=== PATIENT | female | born 1950 | race Caucasian/White ===

== ENCOUNTER 2018-02-24 00:02 | Inpatient (IN) | payer OTHER ==
[~2018-02-24] VITALS: Ht 160 cm; Wt 52.0 kg
[~2018-02-24 00:02] MED LIST: ALBU90OI INH; ALBU90OI6 INH; ALBU90OI61 INH; ALPR.25 PO; ASPI81CH PO; ATEN25 PO; AZIT250 PO; AZIT500 PO; B-121000 MC2 PO; BUDE6HFA INH; BUPR150ER PO; BUSP10 PO; CEPH500 PO; CLOT10 SUSW; DELTASONE20 MG PO; DILT30; FLUO10 PO; FLUO20 PO; FLUSAL115; Flovent 44 mc10.6 GM INH; GUAIFENESIN ER600 MG PO; IBUP800 PO; LEVFLO500 PO; LISI5 PO; LORA1 PO; METPRE4DP PO; Nitroglycerin0.4 MG SL; PANT40 PO; PRED10 PO; PRED20 PO; TIOT18 IH; TOBR.3OPSO OP; Ventolin Soln3 ML INH; Zithromax250 MG PO
[2018-02-24 00:22] LABS: PCO2 Arterial 52.3 mmHg (35-45); PO2 Arterial 123 mmHg (80-100)
[2018-02-24 00:29] LABS: BASOPHILS ABSOLUTE AUTO 0.04 K/mm3 (0.00-0.23); BASOPHILS PERCENT AUTO 0 % (0-2); EOSINOPHILS PERCENT AUTO 0 % (0-6); Hematocrit 41.2 % (33.0-51.0); Hemoglobin 13.4 g/dL (11.5-16.0); IMMATURE GRAN ABSOLUTE AUTO 0.14 K/mm3 (0.00-0.10); IMMATURE GRAN PERCENT AUTO 1 % (0-1); LYMPHOCYTES ABSOLUTE AUTO 0.73 K/mm3 (0.84-5.20); LYMPHOCYTES PERCENT AUTO 3 % (21-46); MONOCYTES ABSOLUTE AUTO 1.34 K/mm3 (0.16-1.47); MONOCYTES PERCENT AUTO 6 % (4-13); Mean Corpuscular HGB 29.9 pg (26.0-34.0); Mean Corpuscular HGB Conc 32.5 g/dL (31.5-36.5); Mean Corpuscular Volume 92 fL (80-100); Mean Platelet Volume 8.5 fL (9.1-12.4); NEUTROPHILS ABSOLUTE AUTO 21.46 K/mm3 (1.96-9.15); NEUTROPHILS PERCENT AUTO 90 % (41-73); Platelet Count 358 K/mm3 (150-400); RDW Coefficient Variation 13.8 % (11.7-14.2); RDW Standard Deviation 47.3 fL (35.1-46.3); Red Blood Cell Count 4.48 M/mm3 (3.80-5.20); White Blood Cell Count 23.71 K/mm3 (4.00-11.30)
[2018-02-24 00:57] LABS: Alanine Aminotransfer (ALT/SGP 30 U/L (12-78); Albumin, Blood 3.4 g/dL (3.4-5.0); Albumin/Globulin Ratio 0.9 (0.8-1.8); Alk Phos 81 U/L (50-136); Anion Gap 6 mmol/L (6-16); Aspartate Aminotrans (AST/SGOT 31 U/L (12-37); Bilirubin, Total 0.3 mg/dL (0.1-1.0); Blood Urea Nitrogen 15 mg/dL (8-24); Bun/Creatinine Ratio 19.7 (12.0-20.0); CO2, Blood 25 mmol/L (21-32); Calcium, Blood 8.5 mg/dL (8.5-10.1); Chloride, Blood 104 mmol/L (98-108); Creatinine, Blood 0.76 mg/dL (0.40-1.00); Globulin, Blood 3.8 g/dL (2.2-4.0); Glomerular Filtration Rate >60 (60-); Glucose, Blood 131 mg/dL (70-99); Potassium, Blood 4.6 mmol/L (3.5-5.5); Sodium, Blood 135 mmol/L (136-145); Total Protein, Blood 7.2 g/dL (6.4-8.2); Troponin I <0.015 ng/mL (0.000-0.040)
[2018-02-24 07:54] LABS: Anion Gap 8 mmol/L (6-16); Blood Urea Nitrogen 13 mg/dL (8-24); Bun/Creatinine Ratio 18.2 (12.0-20.0); CO2, Blood 25 mmol/L (21-32); Calcium, Blood 8.8 mg/dL (8.5-10.1); Chloride, Blood 105 mmol/L (98-108); Creatinine, Blood 0.71 mg/dL (0.40-1.00); Glomerular Filtration Rate >60 (60-); Glucose, Blood 143 mg/dL (70-99); Potassium, Blood 4.4 mmol/L (3.5-5.5); Sodium, Blood 138 mmol/L (136-145)
[2018-02-24 08:06] LABS: PCO2 Arterial 51.1 mmHg (35-45); PO2 Arterial 58.7 mmHg (80-100); pH Blood Arterial 7.32 (7.35-7.45)
[2018-02-25 04:12] LABS: BASOPHILS ABSOLUTE AUTO 0.02 K/mm3 (0.00-0.23); BASOPHILS PERCENT AUTO 0 % (0-2); EOSINOPHILS PERCENT AUTO 0 % (0-6); Hematocrit 43.5 % (33.0-51.0); Hemoglobin 14.2 g/dL (11.5-16.0); IMMATURE GRAN ABSOLUTE AUTO 0.14 K/mm3 (0.00-0.10); IMMATURE GRAN PERCENT AUTO 1 % (0-1); LYMPHOCYTES ABSOLUTE AUTO 0.35 K/mm3 (0.84-5.20); LYMPHOCYTES PERCENT AUTO 2 % (21-46); MONOCYTES ABSOLUTE AUTO 0.33 K/mm3 (0.16-1.47); MONOCYTES PERCENT AUTO 2 % (4-13); Mean Corpuscular HGB 29.9 pg (26.0-34.0); Mean Corpuscular HGB Conc 32.6 g/dL (31.5-36.5); Mean Corpuscular Volume 92 fL (80-100); Mean Platelet Volume 8.8 fL (9.1-12.4); NEUTROPHILS ABSOLUTE AUTO 17.42 K/mm3 (1.96-9.15); NEUTROPHILS PERCENT AUTO 95 % (41-73); Platelet Count 371 K/mm3 (150-400); RDW Coefficient Variation 13.8 % (11.7-14.2); Red Blood Cell Count 4.75 M/mm3 (3.80-5.20); White Blood Cell Count 18.26 K/mm3 (4.00-11.30)
[2018-02-25 04:32] LABS: Anion Gap 8 mmol/L (6-16); Blood Urea Nitrogen 24 mg/dL (8-24); Bun/Creatinine Ratio 28.5 (12.0-20.0); CO2, Blood 32 mmol/L (21-32); Calcium, Blood 9.2 mg/dL (8.5-10.1); Chloride, Blood 98 mmol/L (98-108); Creatinine, Blood 0.84 mg/dL (0.40-1.00); Glomerular Filtration Rate >60 (60-); Glucose, Blood 140 mg/dL (70-99); Potassium, Blood 4.4 mmol/L (3.5-5.5); Sodium, Blood 138 mmol/L (136-145)
[2018-02-27 04:06] LABS: Hemoglobin 15.6 g/dL (11.5-16.0); Mean Corpuscular HGB 29.6 pg (26.0-34.0); Mean Corpuscular HGB Conc 32.5 g/dL (31.5-36.5); Mean Corpuscular Volume 91 fL (80-100); Mean Platelet Volume 8.4 fL (9.1-12.4); Platelet Count 403 K/mm3 (150-400); RDW Coefficient Variation 13.5 % (11.7-14.2); RDW Standard Deviation 45.6 fL (35.1-46.3); Red Blood Cell Count 5.27 M/mm3 (3.80-5.20); White Blood Cell Count 14.99 K/mm3 (4.00-11.30)
[2018-02-27 04:31] LABS: Anion Gap 8 mmol/L (6-16); Blood Urea Nitrogen 40 mg/dL (8-24); Bun/Creatinine Ratio 44.3 (12.0-20.0); CO2, Blood 32 mmol/L (21-32); Calcium, Blood 9.1 mg/dL (8.5-10.1); Chloride, Blood 94 mmol/L (98-108); Glomerular Filtration Rate >60 (60-); Glucose, Blood 155 mg/dL (70-99); Potassium, Blood 4.9 mmol/L (3.5-5.5); Sodium, Blood 134 mmol/L (136-145)
[2018-03-02 14:57] LABS: Hematocrit 45.6 % (33.0-51.0); Hemoglobin 14.8 g/dL (11.5-16.0); Mean Corpuscular HGB 29.6 pg (26.0-34.0); Mean Corpuscular HGB Conc 32.5 g/dL (31.5-36.5); Mean Corpuscular Volume 91 fL (80-100); Mean Platelet Volume 9.1 fL (9.1-12.4); Platelet Count 319 K/mm3 (150-400); RDW Coefficient Variation 13.4 % (11.7-14.2); RDW Standard Deviation 45.2 fL (35.1-46.3); White Blood Cell Count 17.59 K/mm3 (4.00-11.30)
[2018-03-03 05:40] LABS: Anion Gap 5 mmol/L (6-16); Blood Urea Nitrogen 23 mg/dL (8-24); Bun/Creatinine Ratio 34.7 (12.0-20.0); CO2, Blood 33 mmol/L (21-32); Calcium, Blood 8.5 mg/dL (8.5-10.1); Chloride, Blood 96 mmol/L (98-108); Creatinine, Blood 0.66 mg/dL (0.40-1.00); Glomerular Filtration Rate >60 (60-); Glucose, Blood 107 mg/dL (70-99); Potassium, Blood 4.7 mmol/L (3.5-5.5); Sodium, Blood 134 mmol/L (136-145)
[2018-03-03] MEDS ORDERED: BUDE.5 NEB (11:34)
[2018-03-03] MEDS ORDERED: GUAI600T33 PO (11:34)
[2018-03-03] MEDS ORDERED: FURO40 PO (11:39)
[2018-03-03] MEDS ORDERED: PRED10 PO (11:39)
[2018-03-03] MEDS ORDERED: ALBU3IS INH (11:40)
[2018-03-03] MEDS ORDERED: POTCHL10ER PO (11:40)
[2018-03-03] MEDS ORDERED: NYST100000 MT (11:40)
[2018-03-03] MEDS ORDERED: PANT40 PO (11:41)
[2018-03-04] MEDS ORDERED: LISI5 PO (09:37)
[2018-03-04] MEDS ORDERED: PRED20 (09:39)
== END 2018-03-04 16:39 | disposition home or self-care (01) | DRG 189 ==
LOC: ER 00:02 → PCU 00:03 → SURS 00:03 → PCU 03:15 → MEDS 03-02 17:18 → ENPENDDIS 03-04 09:52 → MEDS 03-04 16:39
PROVIDERS: Emergency Medicine; Hospitalist; Internal Medicine
DX: J96.01 Acute respiratory failure with hypoxia (principal); I50.31 Acute diastolic (congestive) heart failure; J44.1 Chronic obstructive pulmonary disease with (acute) exacerbation; J96.02 Acute respiratory failure with hypercapnia; I11.0 Hypertensive heart disease with heart failure; F17.210 Nicotine dependence, cigarettes, uncomplicated; Z66 Do not resuscitate; F41.9 Anxiety disorder, unspecified; F43.29 Adjustment disorder with other symptoms; D72.829 Elevated white blood cell count, unspecified; T38.0X5A Adverse effect of glucocorticoids and synthetic analogues, initial encounter
CPT/HCPCS: 36415; 36600; 71046; 80048; 80053; 82803; 83880; 84484; 85025; 85027; 93005; 93010; 93306; 94640; 94644; 94760; 94761; 96374; 97116; 97161; 97530; 99285; G0378; G8978; G8979; J1650; J1940; J2060; J2920; J2930

== ENCOUNTER 2019-03-07 11:00 | Emergency (ER) | payer OTHER ==
[~2019-03-07] VITALS: Ht 160 cm; Wt 58.5 kg
[~2019-03-07 11:00] MED LIST changes: +ALBU3IS INH; +BUDE.5 NEB; +FURO40 PO; +GUAI600T33 PO; +NYST100000 MT; +POTCHL10ER PO; +PRED20; +Prednisone20 MG PO; +Prozac40 MG PO
[2019-03-07 11:37] LABS: BASOPHILS ABSOLUTE AUTO 0.03 K/mm3 (0.00-0.23); BASOPHILS PERCENT AUTO 0 % (0-2); EOSINOPHILS ABSOLUTE AUTO 0.04 K/mm3 (0.00-0.68); EOSINOPHILS PERCENT AUTO 0 % (0-6); Hematocrit 39.3 % (33.0-51.0); Hemoglobin 12.4 g/dL (11.5-16.0); IMMATURE GRAN ABSOLUTE AUTO 0.02 K/mm3 (0.00-0.10); IMMATURE GRAN PERCENT AUTO 0 % (0-1); LYMPHOCYTES ABSOLUTE AUTO 1.35 K/mm3 (0.84-5.20); LYMPHOCYTES PERCENT AUTO 14 % (21-46); MONOCYTES ABSOLUTE AUTO 1.59 K/mm3 (0.16-1.47); MONOCYTES PERCENT AUTO 17 % (4-13); Mean Corpuscular HGB 29.5 pg (26.0-34.0); Mean Corpuscular HGB Conc 31.6 g/dL (31.5-36.5); Mean Corpuscular Volume 93 fL (80-100); Mean Platelet Volume 8.8 fL (9.1-12.4); NEUTROPHILS ABSOLUTE AUTO 6.32 K/mm3 (1.96-9.15); NEUTROPHILS PERCENT AUTO 68 % (41-73); Platelet Count 314 K/mm3 (150-400); RDW Coefficient Variation 14.4 % (11.7-14.2); RDW Standard Deviation 49.2 fL (35.1-46.3); Red Blood Cell Count 4.21 M/mm3 (3.80-5.20); White Blood Cell Count 9.35 K/mm3 (4.00-11.30)
[2019-03-07 11:50] LABS: Alanine Aminotransfer (ALT/SGP 19 U/L (12-78); Albumin, Blood 3.7 g/dL (3.4-5.0); Albumin/Globulin Ratio 0.9 (0.8-1.8); Alk Phos 108 U/L (50-136); Anion Gap 7 mmol/L (6-16); Aspartate Aminotrans (AST/SGOT 17 U/L (12-37); Bilirubin, Total 1.2 mg/dL (0.1-1.0); Blood Urea Nitrogen 16 mg/dL (8-24); Bun/Creatinine Ratio 19.4 (12.0-20.0); CO2, Blood 25 mmol/L (21-32); Chloride, Blood 103 mmol/L (98-108); Creatinine, Blood 0.83 mg/dL (0.40-1.00); Glomerular Filtration Rate >60 (60-); Glucose, Blood 95 mg/dL (70-99); Potassium, Blood 3.9 mmol/L (3.5-5.5); Sodium, Blood 135 mmol/L (136-145); Total Protein, Blood 7.7 g/dL (6.4-8.2); Troponin I <0.015 ng/mL (0.000-0.040)
[2019-03-07] MEDS ORDERED: AZIT500 PO (15:21)
[2019-03-07] MEDS ORDERED: (None)20 M1 PO (15:21)
== END 2019-03-07 15:30 | disposition home or self-care (01) ==
LOC: ER 11:00
PROVIDERS: Physician Assistant
DX: J44.1 Chronic obstructive pulmonary disease with (acute) exacerbation (principal); R06.03 Acute respiratory distress; F41.9 Anxiety disorder, unspecified; I10 Essential (primary) hypertension; Z86.19 Personal history of other infectious and parasitic diseases; Z79.52 Long term (current) use of systemic steroids; Z79.899 Other long term (current) drug therapy; Z87.891 Personal history of nicotine dependence
CPT/HCPCS: 36415; 71046; 80053; 84484; 85025; 93005; 93010; 94640; 96374; 99284-25; J2930

== ENCOUNTER 2019-03-10 05:08 | Inpatient (IN) | payer OTHER ==
[~2019-03-10] VITALS: Ht 160 cm; Wt 56.9 kg
[~2019-03-10 05:08] MED LIST changes: +(None)20 M1 PO
[2019-03-10 05:29] LABS: BASOPHILS ABSOLUTE AUTO 0.02 K/mm3 (0.00-0.23); BASOPHILS PERCENT AUTO 0 % (0-2); EOSINOPHILS PERCENT AUTO 0 % (0-6); Hematocrit 37.5 % (33.0-51.0); Hemoglobin 11.8 g/dL (11.5-16.0); IMMATURE GRAN ABSOLUTE AUTO 0.18 K/mm3 (0.00-0.10); IMMATURE GRAN PERCENT AUTO 2 % (0-1); LYMPHOCYTES ABSOLUTE AUTO 0.89 K/mm3 (0.84-5.20); LYMPHOCYTES PERCENT AUTO 9 % (21-46); MONOCYTES ABSOLUTE AUTO 1.15 K/mm3 (0.16-1.47); MONOCYTES PERCENT AUTO 12 % (4-13); Mean Corpuscular HGB 29.6 pg (26.0-34.0); Mean Corpuscular HGB Conc 31.5 g/dL (31.5-36.5); Mean Corpuscular Volume 94 fL (80-100); Mean Platelet Volume 8.9 fL (9.1-12.4); NEUTROPHILS ABSOLUTE AUTO 7.58 K/mm3 (1.96-9.15); NEUTROPHILS PERCENT AUTO 77 % (41-73); Platelet Count 411 K/mm3 (150-400); RDW Standard Deviation 48.4 fL (35.1-46.3); Red Blood Cell Count 3.98 M/mm3 (3.80-5.20); White Blood Cell Count 9.82 K/mm3 (4.00-11.30)
[2019-03-10 05:54] LABS: Alanine Aminotransfer (ALT/SGP 32 U/L (12-78); Albumin, Blood 3.3 g/dL (3.4-5.0); Albumin/Globulin Ratio 0.8 (0.8-1.8); Alk Phos 95 U/L (50-136); Anion Gap 8 mmol/L (6-16); Aspartate Aminotrans (AST/SGOT 24 U/L (12-37); Bilirubin, Total 0.3 mg/dL (0.1-1.0); Blood Urea Nitrogen 18 mg/dL (8-24); Bun/Creatinine Ratio 20.2 (12.0-20.0); CO2, Blood 24 mmol/L (21-32); Calcium, Blood 8.9 mg/dL (8.5-10.1); Chloride, Blood 108 mmol/L (98-108); Creatinine, Blood 0.89 mg/dL (0.40-1.00); Globulin, Blood 3.9 g/dL (2.2-4.0); Glomerular Filtration Rate >60 (60-); Glucose, Blood 182 mg/dL (70-99); Potassium, Blood 4.3 mmol/L (3.5-5.5); Sodium, Blood 140 mmol/L (136-145); Total Protein, Blood 7.2 g/dL (6.4-8.2); Troponin I <0.015 ng/mL (0.000-0.040)
[2019-03-10 06:08] LABS: Base Excess Venous -2.4 mmol/L; Bicarbonate Venous 22.7 mmol/L (24.0-30.0); PCO2 Venous 35.6 mmHg (38-42); PO2 Venous 195 mmHg (38-42); pH Blood Venous 7.41 (7.34-7.37)
[2019-03-10] MEDS ORDERED: ASPI81CH PO (06:47)
--- NOTE | 2019-03-10 07:22 | NUR ---
ASSUMED CARE OF PT @3774 FROM JUANA EAGLE RN. PT TO ROOM ON STRWETCHER, BIPAP IN PLACE. PT SATS >95%. PLACED ON TELE AND O2 SAT MONITOR. REPORT GIVEN TO ELSI READ AND STUDENT RN.
--- NOTE | 2019-03-10 07:29 | NUR ---
ASSUMED CARE OF PT @0645 FROM JUANA FARR RN FROM ED. PT TO ROOM ON STRETCHER, BIPAP 12/8, 10, FIO2 30%. O2 SATS >95%. PT ALERT AND ORIENTED. PT PLACESD ON TELE AND SAT MONITOR. ORIENTED TO ROOM. CALL LIGHT WITHIN REACH OF PT, BED IN LOWEST POSITION. REPORT GIVEN TO EDWIN KUO RN.
[2019-03-10 10:17] LABS: Adenovirus Not Detected (NOT DETECT); Bordetella pertussis Not Detected (NOT DETECT); Chlamydophila pneumoniae Not Detected (NOT DETECT); Coronavirus 229E Not Detected (NOT DETECT); Coronavirus HKU1 Not Detected (NOT DETECT); Coronavirus NL63 Not Detected (NOT DETECT); Coronavirus OC43 Not Detected (NOT DETECT); Human Metapneumovirus Not Detected (NOT DETECT); Human Rhinovirus/Enterovirus Not Detected (NOT DETECT); Influenza A Not Detected (NOT DETECT); Influenza A/2009-H1 Not Detected (NOT DETECT); Influenza A/H1 Not Detected (NOT DETECT); Influenza A/H3 Not Detected (NOT DETECT); Influenza B Not Detected (NOT DETECT); Mycoplasma pneumoniae Not Detected (NOT DETECT); Parainfluenza Virus 1 Not Detected (NOT DETECT); Parainfluenza Virus 2 Not Detected (NOT DETECT); Parainfluenza Virus 3 Not Detected (NOT DETECT); Parainfluenza Virus 4 Not Detected (NOT DETECT); Respiratory Syncytial Virus Not Detected (NOT DETECT)
--- NOTE | 2019-03-10 18:10 | NUR ---
SHIFT SUMMARY PT ALERT AND ORIENTED. VS STABLE. 02 SATS HAVE REMAINED ABOVE 92%. PT WAS ON BIPAP THIS AM WITH FI02 OF 30% AND HAS BEEN ON 2L NC SINCE BREAKFAST. PT STATES FEELING SHORT OF BREATH WITH EXERTION AND SATS DECREASE TO HIGH 80'S, BUT RECOVERS QUICKLY. HR HAS BEEN 90'S-110'S. PT DENIES ANY PAIN. PT ABLE TO AMBULATE TO BATHROOM NEEDED WITH SBA. PT HAS PRODUCTIVE COUGH WITH YELLOW THICK SPUTUM. WILL CONTINUE TO MONITOR AND REPORT TO ONCOMING RN. CALL LIGHT IN REACH.
[2019-03-11 04:32] LABS: BASOPHILS ABSOLUTE AUTO 0.05 K/mm3 (0.00-0.23); BASOPHILS PERCENT AUTO 1 % (0-2); EOSINOPHILS PERCENT AUTO 0 % (0-6); Hematocrit 34.9 % (33.0-51.0); Hemoglobin 10.9 g/dL (11.5-16.0); IMMATURE GRAN ABSOLUTE AUTO 0.44 K/mm3 (0.00-0.10); IMMATURE GRAN PERCENT AUTO 4 % (0-1); LYMPHOCYTES ABSOLUTE AUTO 1.51 K/mm3 (0.84-5.20); LYMPHOCYTES PERCENT AUTO 14 % (21-46); MONOCYTES ABSOLUTE AUTO 1.29 K/mm3 (0.16-1.47); MONOCYTES PERCENT AUTO 12 % (4-13); Mean Corpuscular HGB 28.8 pg (26.0-34.0); Mean Corpuscular HGB Conc 31.2 g/dL (31.5-36.5); Mean Corpuscular Volume 92 fL (80-100); Mean Platelet Volume 9.1 fL (9.1-12.4); NEUTROPHILS ABSOLUTE AUTO 7.48 K/mm3 (1.96-9.15); NEUTROPHILS PERCENT AUTO 69 % (41-73); Platelet Count 377 K/mm3 (150-400); RDW Coefficient Variation 14.1 % (11.7-14.2); RDW Standard Deviation 47.8 fL (35.1-46.3); Red Blood Cell Count 3.78 M/mm3 (3.80-5.20); White Blood Cell Count 10.77 K/mm3 (4.00-11.30)
[2019-03-11 04:54] LABS: Alanine Aminotransfer (ALT/SGP 28 U/L (12-78); Albumin, Blood 2.9 g/dL (3.4-5.0); Albumin/Globulin Ratio 0.8 (0.8-1.8); Alk Phos 80 U/L (50-136); Anion Gap 5 mmol/L (6-16); Aspartate Aminotrans (AST/SGOT 17 U/L (12-37); Bilirubin, Total 0.2 mg/dL (0.1-1.0); Blood Urea Nitrogen 20 mg/dL (8-24); Bun/Creatinine Ratio 21.6 (12.0-20.0); CO2, Blood 29 mmol/L (21-32); Calcium, Blood 9.1 mg/dL (8.5-10.1); Chloride, Blood 107 mmol/L (98-108); Creatinine, Blood 0.92 mg/dL (0.40-1.00); Globulin, Blood 3.5 g/dL (2.2-4.0); Glomerular Filtration Rate >60 (60-); Glucose, Blood 108 mg/dL (70-99); Potassium, Blood 4.9 mmol/L (3.5-5.5); Sodium, Blood 141 mmol/L (136-145); Total Protein, Blood 6.4 g/dL (6.4-8.2)
--- NOTE | 2019-03-11 05:54 | NUR ---
SHIFT SUMMARY: PATIENT REMAINED STABLE THROUGHOUT SHIFT. RHYTHM REMAINED NORMAL SINUS RHYTHM THRU THE NIGHT WITH HEART RATE ON 80'S. STAND BY ASSIST DUE TO EXTENDED OXYGEN TUBING. BED ON LOCK AND LOWEST POSITION, CALL LIGHT WITHIN REACH.
--- NOTE | 2019-03-11 10:31 | NUR ---
Assumed care of pt at approx 0710 from RORO Finney. pt vss and in no apparent sign of distress. pt expressed anxiety to this rn regarding her cat being at home without her to take care of her and anxiety related to her 's last year around this time. pt states "sitting here with nothing to do makes me think a lot." This RN comforted pt with therapeutic communication and active listening. Prozac given to pt per orders with effectiveness stated by pt. pt very tearful this morning, however. Dr Powell in this AM with pt. no plan to change status, pt will remain PCU status d/t use of BIPAP. Dr. Powell expects pt will be in hospital for 1-2 more days. ABX TX infusing at this time. pt resting comfortably with no questions or compaints. Call light in reach and pt calls appropriately. wheels locked in lowest position. See shift assessment for detailed assessment. Will continue to monitor and update as appropriate.
--- NOTE | 2019-03-11 18:14 | NUR ---
SHIFT SUMMARY no acute changes this shift. pt vss. no apparent signs of respiratory distress. pt without complaints of sob this shift apart from one isolated episode of coughing at lunch time. pt able to breath through the coughing and regain control of her breathing to self sooth the tachypnia into e/u breathing. no other events this shift. pt calls appropriately, a&ox4, call light within reach, and bed in low, locked position. sba to bathroom. pt on 1-1.5L NC with o2 >95%. Will continue to monitor.
--- NOTE | 2019-03-12 05:18 | NUR ---
SHIFT SUMMARY PATIENT REMAINED STABLE DURING SHIFT. HEART RHYTHM NORMAL SINUS RHYTHM HR RATE 80'S, NO BM FOR 2 DAYS WAS GIVEN MIRALAX DURING DAY SHIFT AND MILK OF MAG AT PHOTORADIO OPERATOR - SUCCESSFUL. DYSPNEA ON EXERTION SBA. PATIENT DENIES PAIN, NUMBNESS OR TINGLING. BED LOCK, ON LOWEST POSITION AND CALL LIGHT WITHIN REACH.
--- NOTE | 2019-03-12 10:11 | NUR ---
Assumed Care: Assumed care of pt at approx 0700. VSS. In no apparent sign of distress. Denies any pain. Pt already up to shower this AM and tolerated that activity well on 3L O2 NC. C/o mild SOB returning from shower. Pt calls appropriately and repositions self. See shift assessment for detailed assessment. Pt states that she is overall feeling much better and is wondering if she will be able to DC home today. Currently resting in bed with call light within reach. Denies any further questions, coplaints or requests at this time. Will continue to maria guadalupe.
--- NOTE | 2019-03-12 17:22 | NUR ---
Shift Summary No acute changes since intial shift assessment. VSS. In no apparent sign of distress. Pt is A&Ox4. SBA. No acute changes or events on tele. Mid way through the shift pt was titrated back down to 2L O2 NC and has tolerated well. Denies any acute complaints or events today. Medical status w/tele, but no bed assignment at this time. Will continue to monitor until report is given to florence READ.
--- NOTE | 2019-03-13 06:20 | NUR ---
SUMMARY: PT ADMITTED FOR COPD EXACERBATION. PT IS MED/TELE. NO ACUTE CHANGE TONIGHT. PT IS AT BASELINE 2L 02 VIA NC. SOME SOB WITH EXERTION. MOVING WELL, SBA TO BATHROOM. DENIES CHEST PAIN AND REPORTS "FEELING ABOUT HOW SHE DOES NORMALLY" WITH HER BREATHING. PLAN IS TO DC TODAY. VSS, A/O, NO SAFETY CONCERNS AT THIS TIME
[2019-03-13] MEDS ORDERED: PRED10 PO (11:09)
[2019-03-13] MEDS ORDERED: LEVFLO500 PO (11:09)
--- NOTE | 2019-03-13 11:40 | NUR ---
DISCHARGED REVIEWED DC PAPERWORK W/PT. VERBALIZED UNDERSTANDING. CALLED PRESCRIPTIONS INTO [facility] PER PT REQUEST. DC'D IV, CATHETER INTACT. PT LEFT UNIT IN WC W/POSSESSIONS AND DC PAPERWORK IN HAND.
== END 2019-03-13 11:32 | disposition home or self-care (01) | DRG 189 ==
LOC: ER 05:08 → PCU 05:45
PROVIDERS: Emergency Medicine; ADMIT Internal Medicine
PROC: 5A09357 Assistance with Respiratory Ventilation, Less than 24 Consecutive Hours, Continuous Positive Airway Pressure (ICD-10-PCS; principal; 2019-03-10)
DX: J96.21 Acute and chronic respiratory failure with hypoxia (principal); J43.9 Emphysema, unspecified; Z87.891 Personal history of nicotine dependence; B19.20 Unspecified viral hepatitis C without hepatic coma; F41.9 Anxiety disorder, unspecified; J20.9 Acute bronchitis, unspecified; Z99.81 Dependence on supplemental oxygen
CPT/HCPCS: 36415; 71045; 80053; 82803; 82947; 83605; 83880; 84145; 84484; 85025; 85027; 87070; 87205; 87486; 87581; 87633; 87798; 93005; 93010; 94640; 94644; 94660; 94762; 96365; 99285-25; J1650; J1956; J3475; J7030; J7512

== ENCOUNTER 2019-08-05 07:16 | Inpatient (IN) | payer OTHER ==
[~2019-08-05] VITALS: Ht 157.5 cm; Wt 65.1 kg
[~2019-08-05 07:16] MED LIST changes: +TRELEGY ELLIPT1 EACH INH
[2019-08-05 07:44] LABS: BASOPHILS ABSOLUTE AUTO 0.03 K/mm3 (0.00-0.23); BASOPHILS PERCENT AUTO 0 % (0-2); EOSINOPHILS ABSOLUTE AUTO 0.11 K/mm3 (0.00-0.68); EOSINOPHILS PERCENT AUTO 1 % (0-6); Hemoglobin 13.3 g/dL (11.5-16.0); IMMATURE GRAN ABSOLUTE AUTO 0.07 K/mm3 (0.00-0.10); IMMATURE GRAN PERCENT AUTO 1 % (0-1); LYMPHOCYTES ABSOLUTE AUTO 1.14 K/mm3 (0.84-5.20); LYMPHOCYTES PERCENT AUTO 10 % (21-46); MONOCYTES ABSOLUTE AUTO 1.32 K/mm3 (0.16-1.47); MONOCYTES PERCENT AUTO 11 % (4-13); Mean Corpuscular HGB 28.6 pg (26.0-34.0); Mean Corpuscular HGB Conc 31.7 g/dL (31.5-36.5); Mean Corpuscular Volume 90 fL (80-100); Mean Platelet Volume 8.5 fL (9.1-12.4); NEUTROPHILS ABSOLUTE AUTO 9.23 K/mm3 (1.96-9.15); NEUTROPHILS PERCENT AUTO 78 % (41-73); Platelet Count 253 K/mm3 (150-400); RDW Coefficient Variation 14.8 % (11.7-14.2); RDW Standard Deviation 49.1 fL (35.1-46.3); Red Blood Cell Count 4.65 M/mm3 (3.80-5.20)
[2019-08-05 07:50] LABS: PO2 Arterial 97.6 mmHg (80-100)
[2019-08-05 07:52] LABS: PCO2 Arterial 41.4 mmHg (35-45); pH Blood Arterial 7.41 (7.35-7.45)
[2019-08-05 08:03] LABS: Alanine Aminotransfer (ALT/SGP 38 U/L (12-78); Albumin, Blood 3.7 g/dL (3.4-5.0); Albumin/Globulin Ratio 1.1 (0.8-1.8); Alk Phos 106 U/L (50-136); Anion Gap 8 mmol/L (6-16); Aspartate Aminotrans (AST/SGOT 45 U/L (12-37); Bilirubin, Total 0.4 mg/dL (0.1-1.0); Blood Urea Nitrogen 11 mg/dL (8-24); Bun/Creatinine Ratio 12.2 (12.0-20.0); CO2, Blood 25 mmol/L (21-32); Calcium, Blood 8.6 mg/dL (8.5-10.1); Chloride, Blood 105 mmol/L (98-108); Globulin, Blood 3.5 g/dL (2.2-4.0); Glomerular Filtration Rate >60 (60-); Glucose, Blood 99 mg/dL (70-99); Potassium, Blood 4.2 mmol/L (3.5-5.5); Sodium, Blood 138 mmol/L (136-145); Total Protein, Blood 7.2 g/dL (6.4-8.2)
--- NOTE | 2019-08-05 10:30 | NUR ---
ASSUMED CARE PT TRANSFERRED FROM ED FOR COPD EXACERBATION. CURRENTLY ON 3L O2 WHICH IS BASELINE. SEE ASSESSMENT FOR LUNG SOUNDS. DYSPNEA ON EXERTION, SBA TO BSC. SINUS TACH IN 120S AT THIS TIME.
--- NOTE | 2019-08-05 14:30 | NUR ---
PT REQUESTING MED FOR ANXIETY. CALL TO DR BRAGG. SEE NEW ORDERS. HR HAS REDUCED INTO 1TEENS.
--- NOTE | 2019-08-05 18:37 | NUR ---
SHIFT SUMMARY: PT SITTING UPRIGHT IN BED, 1 ASSIST TO BSC, SOB ON EXERTION. AWARE. NO ACUTE NEEDS OR CONCERNS
[2019-08-06 04:02] LABS: Hematocrit 40.3 % (33.0-51.0); Hemoglobin 12.8 g/dL (11.5-16.0); Mean Corpuscular HGB 28.5 pg (26.0-34.0); Mean Corpuscular HGB Conc 31.8 g/dL (31.5-36.5); Mean Corpuscular Volume 90 fL (80-100); Mean Platelet Volume 8.8 fL (9.1-12.4); Platelet Count 274 K/mm3 (150-400); RDW Coefficient Variation 14.9 % (11.7-14.2); RDW Standard Deviation 49.4 fL (35.1-46.3); Red Blood Cell Count 4.49 M/mm3 (3.80-5.20); White Blood Cell Count 9.12 K/mm3 (4.00-11.30)
[2019-08-06 04:18] LABS: Anion Gap 7 mmol/L (6-16); Blood Urea Nitrogen 19 mg/dL (8-24); Bun/Creatinine Ratio 24.8 (12.0-20.0); CO2, Blood 26 mmol/L (21-32); Calcium, Blood 8.7 mg/dL (8.5-10.1); Chloride, Blood 106 mmol/L (98-108); Creatinine, Blood 0.77 mg/dL (0.40-1.00); Glomerular Filtration Rate >60 (60-); Glucose, Blood 146 mg/dL (70-99); Potassium, Blood 4.1 mmol/L (3.5-5.5); Sodium, Blood 139 mmol/L (136-145)
--- NOTE | 2019-08-06 05:08 | NUR ---
END OF SHIFT SUMMARY NO QACUTE CHANGES THIS SHIFT. VSS. PT REMAINS ON BASELINE 3LNC O2. LUNGS CONTINUE TO BE TIGHT BUT APPEAR TO HAVE LESSENED SOME THIS SHIFT BILATERALLY. PT HAS BEEN RESTING FOR MAJORITY OF SHIFT AND HAS REQUUIRED LITTLE FROM STAFF. USES CALL LIGHT APPROPRAITELY. WILL CONTINUE TO MONITOR UNTIL SHIFT CHANGE.
--- NOTE | 2019-08-06 16:30 | NUR ---
UPDATE PT UP TO BSC. PT BECOMES TACHYPNEIC AND INCREASING SOB. SATS 85% ON 3L NC. O2 SATS INCREASED TO 5L NC WITH SATS INCREASING TO 90%. LS TIGHT AND WHEEZY THROUGHOUT. PT IN TRIPOD POSITION. RESPIRATORY THERAPY CALLED AND BREATHING TREATMENT PROVIDED. HR SINUS TACH 150-160'S. DR. BRAGG IN TO SEE PT. BIPAP PLACED ON PT. RESPIRATORY RATE IMPROVING. WILL CONTINUE TO MONITOR CLOSELY.
[2019-08-06 17:24] LABS: Base Excess Venous -1.1 mmol/L; Bicarbonate Venous 22.9 mmol/L (24.0-30.0); PCO2 Venous 50.2 mmHg (38-42); PO2 Venous 114 mmHg (38-42); pH Blood Venous 7.31 (7.34-7.37)
--- NOTE | 2019-08-06 17:26 | NUR ---
SHIFT SUMMARY PT ALERT AND ORIENTED. VS STABLE. PT STILL ON BIPAP WITH RESPIRATIONS 26-30. O2 SATS REMAIN ABOVE 90%. BP STABLE. HR COMING DOWN TO 130-140. PT TREATED FOR ANXIETY AND FAN PROVIDED. WILL CONTINUE TO MONIOTR CLOSELY AND REPORT TO ONCOMING RN. CALL LIGHT IN REACH.
--- NOTE | 2019-08-07 05:36 | NUR ---
END OF SHIFT SUMMARY NO ACUTE CHANGES THIS SHIFT. PT CONTINUES ON BIPAP BUT FIO2 HAS TITRATED DOWN TO 30%. PT HAS REQUIRED SOME PRN BREATHING TREATMENTS. RT SETUP WARMED HUMIDIFIED AIR THROUGH BIPAP TO HELP WITH PT'S COUGHING, THIS HAS BEEN NVERY SUCCESFUL ACCORDING TO THE PT. THE [T HAS BEEN UP TO THE BSC THIS SHIFT. OTHERWISE, PT HAS NOT REAUIRED MUCH FROM STAFF. WILL CONTINUE TO MONITOR UNTIL SHIFT CHANGE.
--- NOTE | 2019-08-07 10:10 | NUR ---
UPDATE PT UP TO BSC BECOMES TACHYPNEIC. LS TIGHT AND WHEEZES THROUGHOUT. BIPAP PLACED ON PT. RR RANGING FROM 26-34. O2 SATS >90% ON BIPAP WITH FIO2 40%. RT CALLED FOR BREATHING TRREATMENT. WILL CONTINUE TO MONITOR CLOSELY.
[2019-08-07 14:03] LABS: Adenovirus Not Detected (NOT DETECT); Coronavirus 229E Not Detected (NOT DETECT); Coronavirus HKU1 Not Detected (NOT DETECT); Coronavirus NL63 Not Detected (NOT DETECT); Coronavirus OC43 Not Detected (NOT DETECT); Human Metapneumovirus Not Detected (NOT DETECT); Human Rhinovirus/Enterovirus Detected (NOT DETECT); Influenza A Not Detected (NOT DETECT); Influenza A/2009-H1 Not Detected (NOT DETECT); Influenza A/H1 Not Detected (NOT DETECT); Influenza A/H3 Not Detected (NOT DETECT); Influenza B Not Detected (NOT DETECT); Parainfluenza Virus 1 Not Detected (NOT DETECT); Parainfluenza Virus 2 Not Detected (NOT DETECT); Parainfluenza Virus 3 Not Detected (NOT DETECT)
[2019-08-07 14:04] LABS: Bordetella pertussis Not Detected (NOT DETECT); Chlamydophila pneumoniae Not Detected (NOT DETECT); Mycoplasma pneumoniae Not Detected (NOT DETECT); Parainfluenza Virus 4 Not Detected (NOT DETECT); Respiratory Syncytial Virus Not Detected (NOT DETECT)
--- NOTE | 2019-08-07 17:52 | NUR ---
SHIFT SUMMARY PT ALERT AND ORIENTED. HR HAS BEEN SINUS TACH RANGING FROM 100-150. HR INCREASES WITH SHORTNESS OF BREATH. LS TIGHT AND WHEEZES THROUGHOUT. PT ON BIPAP MOST OF SHIFT WITH FIO2 OF 35%. PT TAKING SMALL BREAKS ON 3L NC. PT ABLE TO COMMUNICATE NEEDS. WILL CONTINUE TO MONITOR AND REPORT TO ONCOMING RN. CALL LIGHT IN REACH.
--- NOTE | 2019-08-08 05:47 | NUR ---
END OF SHIFT SUMMARY NO ACUTE CHANGES THIS SHIFT. VSS. PT HAS NOT HAD AN EPISODE OF ANXIETY ATTAXCK. HAS SLEPT T/O NOGHT WITH BIPAP ON WHICH SHE HAS BEEN TOLERATING WELL. PT HAS NOT BEEN OF OF THE BIPAP MUCH THIS NIGHT BUT HAS TOLERATED IT WELL WHEN SHE WAS. PT CONTINUES TO BE EXERTIONALLY DYSPNEIC. PT HAS CARLOS USING CALL LIGHT APPROPRIATELY. CALL LIGHT WITHIN REACH. WILL CONTINUE TO MONITOR PT UNTIL SHIFT CHANGE.
--- NOTE | 2019-08-08 15:21 | NUR ---
SPiritual care visit conducted. Patient is sitting up in bed and alert. Patient openly shares about her medical history up to her current issues, about the of her a little over a year ago and about the gift of her two best friends that happen to be the neighbors on both sides of her dwelling. I ask patient where she finds her inspiration and her strength to remain positive with the pain, loss and difficulties she has experienced. Patient states that she is inspired by her own, "The glass is 3/4's full attitude", by her friends and by [place] I listen empathically, encouraged self-care, reinforced helpful attitudes and practices and provide grief support. Patient responds well and shows signs of an elevated mood. I will continue to remain available to patient.
--- NOTE | 2019-08-08 18:13 | NUR ---
SHIFT SUMMARY PT ALERT AND ORIENTED. HR SINUS TACH WITH A RATE 110'S. HR UP TO 140'S WITH SOB. BP STABLE. O2 SATS REMAIN ABOVE 90% ON 3L NC. PT ON BIPAP ON AND OFF NEEDED WITH FIO2 OF 35%. RESPIRATIONS RANGING FROM 24-38. LS TIGHT AND WHEEZES THROUGHOUT. WILL CONTINUE TO MONITOR AND REPORT TO ONCOMING RN. CALL LIGHT IN REACH.
--- NOTE | 2019-08-08 18:54 | NUR ---
Pt visit this evening. Pt is resting in bed upon arrival. She denies pain at this time. She adjusts her self and elevates the head of her bed to engage in conversation. Pt reports dyspnea and is requesting to be placed on BIPAP. Pt is agreeable for palliative care to F/U at a later time. Spoke with bedside nurse Daniella discussed case and reported Pt's request for BIPAP. Palliative Care will remain available.
--- NOTE | 2019-08-08 19:30 | NUR ---
STARTED DEFLATING TR BAND PER REPORT TR BAND INFLATED TO 10CC. FIRST 2CC OF AIR REMOVED AT THIS TIME. MONITORED FOR SEVERAL MIN, NO BLEEDING NOTED. ONE STRAP ON ARM BOARD LEFT UNDONE TO VISUALIZE TR SITE, PER PT REQUEST. WILL CONT TO REMOVE AIR PER PROTOCOL.
--- NOTE | 2019-08-09 05:23 | NUR ---
SHIFT SUMMARY PT SLEEPING IN ROOM COMFORTABLY AT THIS TIME. PT SLEPT WELL T/O NIGHT ON BIPAP W/ SATS >92%. PT DID NOT REQUEST ANY ANTI ANXIETY MEDS T/O NIGHT BUT SLEPT WELL. PT GOT UP TWICE TO USE BSC, REQUIRED ONLY SHORT TIME BACK ON BIPAP TO RECOVER. PT DENIED ANY CP. PT DENIED ANY OTHER NEEDS. CALL LIGHT IN REACH. PT CALLS APPROPRIATELY.
--- NOTE | 2019-08-09 08:13 | NUR ---
pt laying in bed on bipap, removed for breakfast, a/ox3, pleasant and cooperative with care, follows commands well, states she is doing ok, ready for breakfast, lungs are very dim, tight with exp wheezing t/o, resp even with mild laboring at rest, has a nonproductive cough, is on 3 liters n/c when off bipap, hrr, tele in place running st per monitor, see strip, no edema noted, ppp+2, cap refill <3sec, vs stable, afebrile, iv site is clear and patent, btx4, abd flat soft nontender, voids without diff, skin c/w/d, maew, cass, call light in reach.
--- NOTE | 2019-08-09 11:37 | NUR ---
Spiritual care visit conducted. I checked in on patient and she stated that she is very tired today but is doing much better. I provided a calming presence and a blessing. I will continue to remain available to patient and family.
--- NOTE | 2019-08-09 12:24 | NUR ---
pt resting in bed recieving a breathing tx. she reports she is doing pretty well, no complaints, is currently on n/c, call light in reach.
--- NOTE | 2019-08-09 18:33 | NUR ---
pt doing pretty well today, has been on and off bipap throughout the day. no complaints. makes her needs known. call light in reach.
[2019-08-10 03:37] LABS: BASOPHILS ABSOLUTE AUTO 0.01 K/mm3 (0.00-0.23); BASOPHILS PERCENT AUTO 0 % (0-2); EOSINOPHILS PERCENT AUTO 0 % (0-6); Hematocrit 41.1 % (33.0-51.0); IMMATURE GRAN ABSOLUTE AUTO 0.09 K/mm3 (0.00-0.10); IMMATURE GRAN PERCENT AUTO 1 % (0-1); LYMPHOCYTES ABSOLUTE AUTO 1.48 K/mm3 (0.84-5.20); LYMPHOCYTES PERCENT AUTO 12 % (21-46); MONOCYTES ABSOLUTE AUTO 1.13 K/mm3 (0.16-1.47); MONOCYTES PERCENT AUTO 9 % (4-13); Mean Corpuscular HGB 28.1 pg (26.0-34.0); Mean Corpuscular HGB Conc 31.6 g/dL (31.5-36.5); Mean Corpuscular Volume 89 fL (80-100); Mean Platelet Volume 8.6 fL (9.1-12.4); NEUTROPHILS ABSOLUTE AUTO 9.33 K/mm3 (1.96-9.15); NEUTROPHILS PERCENT AUTO 78 % (41-73); Platelet Count 269 K/mm3 (150-400); RDW Coefficient Variation 14.9 % (11.7-14.2); RDW Standard Deviation 48.8 fL (35.1-46.3); Red Blood Cell Count 4.62 M/mm3 (3.80-5.20); White Blood Cell Count 12.04 K/mm3 (4.00-11.30)
[2019-08-10 03:52] LABS: Anion Gap 3 mmol/L (6-16); Blood Urea Nitrogen 33 mg/dL (8-24); Bun/Creatinine Ratio 36.1 (12.0-20.0); CO2, Blood 33 mmol/L (21-32); Calcium, Blood 8.7 mg/dL (8.5-10.1); Chloride, Blood 103 mmol/L (98-108); Creatinine, Blood 0.91 mg/dL (0.40-1.00); Glomerular Filtration Rate >60 (60-); Glucose, Blood 90 mg/dL (70-99); Magnesium, Blood 2.5 mg/dL (1.6-2.4); Potassium, Blood 4.7 mmol/L (3.5-5.5); Sodium, Blood 139 mmol/L (136-145)
--- NOTE | 2019-08-10 05:37 | NUR ---
SHIFT SUMMARY PT SLEEPING IN ROOM COMFORTABLY AT THIS TIME. NO CHANGES IN STATUS T/O NIGHT. PT SLEPT WELL T/O NIGHT ON BIPAP. RESP EVEN UNLABORED ON BIPAP 30% FIO2 W/ SATS >95%. PT TOOK BREAK FORM BIPAP THIS MORNING AT APPROX 0300, AND REMAINS ON NC AT THIS TIME W/ SATS >95%. PT DENIES PAIN, DENIES SOB, UNLESS W/ ACTIVITY. DENIES OTHER NEEDS. PT REQUESTED ANXIETY MEDS ONLY ONCE T/O NIGHT. CALL LIGHT IN REACH.
--- NOTE | 2019-08-10 08:13 | NUR ---
INITIAL ASSESMENT: PATIENT IS RESTING IN BED WITH HOB ELEVATED. BI-PAP IN PLACE, SETTINGS 12/6 FIO2 IS AT 30%. PT TAKEN OFF BI-PAP SO THAT SHE CAN EAT BREAKFAST. PT IS AWAKE, ALERT AND ORIENTED. PT DENIES PAIN AT THIS TIME. HRR, SINUS RHYTHM IN THE 80S PER TELEMETRY. LS DIM T/O, AUDIBLE CRACKLES IN THE UPPER LOBES, AND SOEM EXP WHEEZING NOTED IN THE UPPER LOBES. PT IS TACHYPNEC WITH SHALLOW RESP. BIOX WNL ON 3L VIA NC. PT STATES THE 3L VIA NC IS HER HOME DOSE OF OXYGEN. SHE DENIES HAVING A BI-PAP AT HOME. BT+. PPP. NO EDEMA PRESENT AT THIS TIME. VSS. AM MEDS GIVEN WHOLE WITH A SIP OF WATER. NO SWALLOWING DIFFICULTIES NOTED. PT DENIES FURTHER NEEDS AT THIS TIME. CALL LIGHT IN REACH, WILL CONTINUE TO MONITOR.
--- NOTE | 2019-08-10 11:27 | NUR ---
ASSESSMENT: INITIAL ASSESSMENT UNCHANGED. PT IS AWAKE AND REQUESTING TO HAVE BI-PAP OFF. VSS. PT IS TEARFUL, SHE STATES SHE IS ANXIOUS AND MISSES HER CAT. PT GIVEN TISSUE AND COMFORTED. PT GIVEN TEA WITH SUGAR. PT DENIES OTHER NEEDS AT THIS TIME, STATES SHE WOULD LIKE TO TAKE A NAP. CALL LIGHT IN REACH, WILL CONTINUE TO MONITOR.
--- NOTE | 2019-08-10 16:00 | NUR ---
ASSESSMENT: PT IS RESTINNE COMFORTABLY IN BED WATCHING TV. PT HAS BEEN OFF AND ON THE BI-PAP ALL AFTERNOON. VSS. PT IS CURRENTLY ON HER NC, PT DENIES NEEDS AT THIS TIME, CALL LIGHT IN REACH. WILL CONTINUE TO MONITOR.
--- NOTE | 2019-08-10 17:28 | NUR ---
PATIENT HAS DONE WELL THROUGH OUT THE DAY. SHE HAS BEEN OFF/ON THE BI-PAP THROUGH OUT THE DAY. PT HAS BEEN MEDICATED FOR ANXIETY A COUPLE OF TIMES TODAY. PT IS CURRENTLY SITTING UP IN BED EATING DINNER. NO ACUTE CHANGES THIS SHIFT. WILL REPORT TO ONCOMING RN.
[2019-08-11 04:22] LABS: BASOPHILS ABSOLUTE AUTO 0.01 K/mm3 (0.00-0.23); BASOPHILS PERCENT AUTO 0 % (0-2); EOSINOPHILS ABSOLUTE AUTO 0.11 K/mm3 (0.00-0.68); EOSINOPHILS PERCENT AUTO 1 % (0-6); Hematocrit 39.2 % (33.0-51.0); Hemoglobin 12.3 g/dL (11.5-16.0); IMMATURE GRAN ABSOLUTE AUTO 0.11 K/mm3 (0.00-0.10); IMMATURE GRAN PERCENT AUTO 1 % (0-1); LYMPHOCYTES ABSOLUTE AUTO 2.44 K/mm3 (0.84-5.20); LYMPHOCYTES PERCENT AUTO 27 % (21-46); MONOCYTES ABSOLUTE AUTO 0.89 K/mm3 (0.16-1.47); MONOCYTES PERCENT AUTO 10 % (4-13); Mean Corpuscular HGB 28.1 pg (26.0-34.0); Mean Corpuscular HGB Conc 31.4 g/dL (31.5-36.5); Mean Corpuscular Volume 90 fL (80-100); Mean Platelet Volume 8.7 fL (9.1-12.4); NEUTROPHILS ABSOLUTE AUTO 5.64 K/mm3 (1.96-9.15); NEUTROPHILS PERCENT AUTO 61 % (41-73); Platelet Count 271 K/mm3 (150-400); RDW Coefficient Variation 14.7 % (11.7-14.2); RDW Standard Deviation 48.3 fL (35.1-46.3); Red Blood Cell Count 4.38 M/mm3 (3.80-5.20)
[2019-08-11 04:42] LABS: Anion Gap 4 mmol/L (6-16); Blood Urea Nitrogen 29 mg/dL (8-24); Bun/Creatinine Ratio 32.3 (12.0-20.0); CO2, Blood 32 mmol/L (21-32); Calcium, Blood 8.5 mg/dL (8.5-10.1); Chloride, Blood 102 mmol/L (98-108); Glomerular Filtration Rate >60 (60-); Glucose, Blood 82 mg/dL (70-99); Potassium, Blood 4.3 mmol/L (3.5-5.5); Sodium, Blood 138 mmol/L (136-145)
--- NOTE | 2019-08-11 05:27 | NUR ---
SHIFT SUMMARY PT SLEEPING IN ROOM COMFORTABLY AT THIS TIME. NO CHANGES IN STATUS T/O NIGHT. PT SLEPT WELL AND DID NOT REQUEST ANY ANXIETY MEDS AFTER START OF SHIFT. PT ALSO DID NOT USE BIPAP AT ALL DURING NIGHT. RESP EVEN UNLABORED ON 3L NC WHICH IS PT BASELINE. SATS >95%. DENIES ANY CP, REPORTS DYSPNEA W/ EXERTION HAS IMPROVED. DENIES OTHER NEEDS. CALL LIGHT IN REACH. PT CALLS APPROPRIATELY.
--- NOTE | 2019-08-11 08:16 | NUR ---
pt sittin up in bed eating breakfast, a/ox3, pleasant and cooperative with care, follows commands well, denies pain, states she is getting better, and didn't need the bipap durring the night, lungs are clear but dim in upper wright, course in bases, resp even and mildly labored at rest, is currently on 3 liters 02 via n/c, hrr, tele in place running st per monitor, see strip, no edema noted, ppp+2, cap refill <3sec, vs stable, afebrile, iv site is clear and patent, btx4, abd flat soft nontender, voids without diff, skin c/w/d, maew, cass, call light in reach.
[2019-08-11] MEDS ORDERED: ALPR.25 PO (11:13)
[2019-08-11] MEDS ORDERED: SERT25 PO (11:14)
[2019-08-11] MEDS ORDERED: Prinivil10 MG PO (11:15)
[2019-08-11] MEDS ORDERED: DELTASONE20 MG PO (11:17)
[2019-08-11] MEDS ORDERED: ALBU3IS INH (11:40)
--- NOTE | 2019-08-11 12:44 | NUR ---
PT HAS BEEN DISCHARGED TO HOME. SHE IS HAPPY TO BE GOING HOME, HER RIDE IS HERE, WENT OVER DISCHARGE INSTRUCTIONS WITH HER, SHE VERBALIZED UNDERSTANDING, NEW MEDS CALLED INTO [facility], IV REMOVED INTACT, RT CALLED [facility]ICAL [employer]PPLY FOR AN O2 TANK TO GO HOME WITH, THIS HAS ARRIVED, AND PT IS LEAVING VIA WHEELCHAIR WITH SHIP WIRER IN ATTENDENCE. SHE HAS ALL HER BELONGINGS, AND A HARD SCRIPT FOR ANAM.
== END 2019-08-11 12:46 | disposition home or self-care (01) | DRG 189 ==
LOC: ER 07:16 → PCU 09:00
PROVIDERS: Emergency Medicine; Hospitalist; ADMIT Internal Medicine
PROC: 5A09357 Assistance with Respiratory Ventilation, Less than 24 Consecutive Hours, Continuous Positive Airway Pressure (ICD-10-PCS; principal; 2019-08-08)
DX: J96.21 Acute and chronic respiratory failure with hypoxia (principal); I21.A1 Myocardial infarction type 2; J44.1 Chronic obstructive pulmonary disease with (acute) exacerbation; R65.10 Systemic inflammatory response syndrome (SIRS) of non-infectious origin without acute organ dysfunction; B19.20 Unspecified viral hepatitis C without hepatic coma; Z79.82 Long term (current) use of aspirin; F41.0 Panic disorder [episodic paroxysmal anxiety]; I10 Essential (primary) hypertension; F41.8 Other specified anxiety disorders; Z99.81 Dependence on supplemental oxygen; F17.200 Nicotine dependence, unspecified, uncomplicated; B34.9 Viral infection, unspecified; J96.22 Acute and chronic respiratory failure with hypercapnia
CPT/HCPCS: 0099U; 36415; 36600; 71046; 80048; 80053; 82803; 82947; 83735; 83880; 84145; 84484; 85025; 85027; 93005; 93010; 94640; 94644; 94660; 94664; 94667; 94760; 94762; 96360; 98960; 99285-25; J1650; J2930; J7120; J7512

== ENCOUNTER 2020-02-04 23:33 | Emergency (ER) | payer OTHER ==
[~2020-02-04] VITALS: Ht 160 cm; Wt 65.8 kg
[~2020-02-04 23:33] MED LIST changes: +Prinivil10 MG PO; +SERT25 PO
[2020-02-05 00:01] LABS: BASOPHILS ABSOLUTE AUTO 0.03 K/mm3 (0.00-0.23); BASOPHILS PERCENT AUTO 0 % (0-2); EOSINOPHILS ABSOLUTE AUTO 0.01 K/mm3 (0.00-0.68); EOSINOPHILS PERCENT AUTO 0 % (0-6); Hematocrit 37.6 % (33.0-51.0); IMMATURE GRAN ABSOLUTE AUTO 0.09 K/mm3 (0.00-0.10); IMMATURE GRAN PERCENT AUTO 1 % (0-1); LYMPHOCYTES ABSOLUTE AUTO 0.75 K/mm3 (0.84-5.20); LYMPHOCYTES PERCENT AUTO 4 % (21-46); MONOCYTES ABSOLUTE AUTO 1.37 K/mm3 (0.16-1.47); MONOCYTES PERCENT AUTO 8 % (4-13); Mean Corpuscular HGB 28.5 pg (26.0-34.0); Mean Corpuscular HGB Conc 31.9 g/dL (31.5-36.5); Mean Corpuscular Volume 89 fL (80-100); Mean Platelet Volume 8.9 fL (9.1-12.4); NEUTROPHILS PERCENT AUTO 87 % (41-73); Platelet Count 229 K/mm3 (150-400); RDW Coefficient Variation 13.9 % (11.7-14.2); RDW Standard Deviation 44.9 fL (35.1-46.3); Red Blood Cell Count 4.21 M/mm3 (3.80-5.20); White Blood Cell Count 17.85 K/mm3 (4.00-11.30)
[2020-02-05 00:22] LABS: Alanine Aminotransfer (ALT/SGP 30 U/L (12-78); Albumin, Blood 3.4 g/dL (3.4-5.0); Albumin/Globulin Ratio 1.1 (0.8-1.8); Alk Phos 74 U/L (50-136); Anion Gap 9 mmol/L (6-16); Aspartate Aminotrans (AST/SGOT 29 U/L (12-37); Bilirubin, Total 0.6 mg/dL (0.1-1.0); Blood Urea Nitrogen 17 mg/dL (8-24); Bun/Creatinine Ratio 14.8 (12.0-20.0); CO2, Blood 24 mmol/L (21-32); Calcium, Blood 8.3 mg/dL (8.5-10.1); Chloride, Blood 107 mmol/L (98-108); Creatinine, Blood 1.15 mg/dL (0.40-1.00); Glomerular Filtration Rate 50 (60-); Glucose, Blood 96 mg/dL (70-99); Sodium, Blood 140 mmol/L (136-145); Total Protein, Blood 6.4 g/dL (6.4-8.2); Troponin I <0.015 ng/mL (0.000-0.040)
[2020-02-05] MEDS ORDERED: Prednisone20 MG PO (01:51)
[2020-02-05] MEDS ORDERED: Zithromax250 MG PO (01:51)
== END 2020-02-05 03:17 | disposition home or self-care (01) ==
LOC: ER 23:33
PROVIDERS: Emergency Medicine
DX: J44.1 Chronic obstructive pulmonary disease with (acute) exacerbation (principal); F41.9 Anxiety disorder, unspecified; I10 Essential (primary) hypertension; F32.9 Major depressive disorder, single episode, unspecified; Z86.19 Personal history of other infectious and parasitic diseases; Z79.899 Other long term (current) drug therapy; Z79.52 Long term (current) use of systemic steroids
CPT/HCPCS: 71046; 80053; 83880; 84484; 85025; 93005; 93010; 99285-25; J7512

== ENCOUNTER 2022-03-14 13:47 | Inpatient (IN) | payer OTHER ==
[~2022-03-14] VITALS: Ht 160 cm; Wt 66.9 kg
[2022-03-14 14:16] LABS: BASOPHILS ABSOLUTE AUTO 0.03 K/mm3 (0.00-0.23); BASOPHILS PERCENT AUTO 0 % (0-2); EOSINOPHILS PERCENT AUTO 1 % (0-6); Hematocrit 42.4 % (33.0-51.0); Hemoglobin 13.2 g/dL (11.5-16.0); IMMATURE GRAN ABSOLUTE AUTO 0.04 K/mm3 (0.00-0.10); IMMATURE GRAN PERCENT AUTO 0 % (0-1); LYMPHOCYTES ABSOLUTE AUTO 1.94 K/mm3 (0.84-5.20); LYMPHOCYTES PERCENT AUTO 17 % (21-46); MONOCYTES ABSOLUTE AUTO 1.38 K/mm3 (0.16-1.47); MONOCYTES PERCENT AUTO 12 % (4-13); Mean Corpuscular HGB 27.8 pg (26.0-34.0); Mean Corpuscular HGB Conc 31.1 g/dL (31.5-36.5); Mean Corpuscular Volume 89 fL (80-100); NEUTROPHILS ABSOLUTE AUTO 7.82 K/mm3 (1.96-9.15); NEUTROPHILS PERCENT AUTO 69 % (41-73); Platelet Count 223 K/mm3 (150-400); RDW Coefficient Variation 14.2 % (11.7-14.2); RDW Standard Deviation 46.7 fL (35.1-46.3); Red Blood Cell Count 4.75 M/mm3 (3.80-5.20); White Blood Cell Count 11.31 K/mm3 (4.00-11.30)
[2022-03-14 14:20] LABS: Alanine Aminotransfer (ALT/SGP 42 U/L (12-78); Albumin, Blood 3.8 g/dL (3.4-5.0); Alk Phos 94 U/L (50-136); Anion Gap 8 mmol/L (6-16); Aspartate Aminotrans (AST/SGOT 40 U/L (12-37); Bilirubin, Total 0.6 mg/dL (0.1-1.0); Blood Urea Nitrogen 13 mg/dL (8-24); Bun/Creatinine Ratio 18.4 (12.0-20.0); CO2, Blood 26 mmol/L (21-32); Calcium, Blood 8.7 mg/dL (8.5-10.1); Chloride, Blood 103 mmol/L (98-108); Creatinine, Blood 0.71 mg/dL (0.40-1.00); Glomerular Filtration Rate >60 (60-); Glucose, Blood 131 mg/dL (70-99); Potassium, Blood 4.5 mmol/L (3.5-5.5); Sodium, Blood 137 mmol/L (136-145); Total Protein, Blood 7.8 g/dL (6.4-8.2)
[2022-03-14 14:57] LABS: Influenza A, PCR NEGATIVE (NEGATIVE); Influenza B, PCR NEGATIVE (NEGATIVE); Resp Syncytial Virus, PCR NEGATIVE (NEGATIVE); SARS-Cov-2 (COVID-19) PCR, MMC NEGATIVE (NEGATIVE)
[2022-03-14 16:35] LABS: PO2 Arterial 115 mmHg (80-100); pH Blood Arterial 7.33 (7.35-7.45)
--- NOTE | 2022-03-14 17:03 | NUR ---
Pt arrived, via stretcher, wearing 100% NRB mask and conversant, cheerful, making jokes. Transfered using slider sheet to bed in PCU 5. Put on bipap by RT Bessy. Lung sounds are diminished in bases, coarse crackles upper lobes noted, occasional wheeze is noted throughout. She is tolerating the bipap very well. C/o dry mouth but was able to come off of the bipap briefly to drink some water. STates she does not have her teeth with her.
[2022-03-14] MEDS ORDERED: LISI5 PO (17:15)
--- NOTE | 2022-03-14 17:50 | NUR ---
Heart rate is normalizing, Sinus rhythm, 111-115 bpm, down from 122-130 bpm on arrival. Blood pressure stable, with MAP of 80 and NS bolus still infusing.
--- NOTE | 2022-03-14 18:29 | NUR ---
Pt requested that I call her friend Dora Toledo. Unable to reach her with the phone number in chart. Pt was able to call her on her own cell phone.
--- NOTE | 2022-03-14 18:51 | NUR ---
taking a break from the bipap, on 4 l/min n.c. delivery to eat dinner.
[2022-03-15 03:58] LABS: BASOPHILS PERCENT AUTO 0 % (0-2); EOSINOPHILS PERCENT AUTO 0 % (0-6); Hematocrit 37.6 % (33.0-51.0); Hemoglobin 11.7 g/dL (11.5-16.0); IMMATURE GRAN ABSOLUTE AUTO 0.03 K/mm3 (0.00-0.10); IMMATURE GRAN PERCENT AUTO 1 % (0-1); LYMPHOCYTES PERCENT AUTO 10 % (21-46); MONOCYTES ABSOLUTE AUTO 0.22 K/mm3 (0.16-1.47); MONOCYTES PERCENT AUTO 4 % (4-13); Mean Corpuscular HGB 27.5 pg (26.0-34.0); Mean Corpuscular HGB Conc 31.1 g/dL (31.5-36.5); Mean Corpuscular Volume 89 fL (80-100); Mean Platelet Volume 9.2 fL (9.1-12.4); NEUTROPHILS ABSOLUTE AUTO 5.25 K/mm3 (1.96-9.15); NEUTROPHILS PERCENT AUTO 86 % (41-73); Platelet Count 185 K/mm3 (150-400); RDW Coefficient Variation 14.4 % (11.7-14.2); RDW Standard Deviation 46.6 fL (35.1-46.3); Red Blood Cell Count 4.25 M/mm3 (3.80-5.20)
[2022-03-15 04:24] LABS: Anion Gap 6 mmol/L (6-16); Blood Urea Nitrogen 18 mg/dL (8-24); Bun/Creatinine Ratio 28.6 (12.0-20.0); CO2, Blood 26 mmol/L (21-32); Calcium, Blood 8.4 mg/dL (8.5-10.1); Chloride, Blood 105 mmol/L (98-108); Creatinine, Blood 0.63 mg/dL (0.40-1.00); Glomerular Filtration Rate >60 (60-); Glucose, Blood 149 mg/dL (70-99); Potassium, Blood 4.1 mmol/L (3.5-5.5); Sodium, Blood 137 mmol/L (136-145)
--- NOTE | 2022-03-15 06:02 | NUR ---
SHIFT SUMMARY PT ALERT AND ORIENTED X4. AFEBRILE. BP SYSTOLIC 90-100'S. ALTERNATING BETWEEN BIPAP 30% FIO2 AND 4L NC, SATS OVER 93%. HR ST 110'S TO START SHIFT, 80-90'S NOW. ABLE TO AMBULATE X1 ASSIST TO COMMODE. NO C/O PAIN OR DISCOMFORT. IN BED RESTING WITH CALL ALARM AT SIDE, WILL CONTINUE TO MONITOR UNTIL REPORT GIVEN TO DAYSHIFT RN
--- NOTE | 2022-03-15 17:00 | NUR ---
PT SUMMARY: PT REMAINED ALERT AND ORIENTED ABLE TO MAKE NEEDS KNOWN SBA FOR TRANSFERS. ALTERNATING BIPAP SETTINGS 13/7 WITH 30% FIO2 SATS KEPT ABOVE 90% ON 4L NASAL CANNULA AT BASELINE, STILL HAS SOB WITH EXERTION. DENIES ANY CHEST PAIN OR PRESSURE. BP SYSTOLIC 90-110'S, HRR ST AT 100'S, AFEBRILE. PT REPORTED 2 BMS FOR THE SHIFT REFUSED BOWELCARE THIS AM. TROPONIN ELEVATED AT 862 PROVIDER MADE AWARE ORDER TO REPEAT AT 1800 AND ECHO. PT TOLERATING DIET, USES BEDSIDE COMMODE FOR TOILETING, RECEIVED A BED BATH TODAY. NO OTHER ISSUES REPORTED WILL REPORT TO ONCOMING SHIFT.
--- NOTE | 2022-03-16 06:13 | NUR ---
SHIFT SUMMARY PT ALERT AND ORIENTED X4. BP STABLE. AFEBRILE. HR ST 100-120'S. ON EITHER BIPAP 12/6 30% FIO2 OR NC 4L SATS OVER 92%. X1 C/O ANXIETY MEDICATED PER EMAR. SLEEPING MOST OF NIGHT. X1 SBA FOR ADL'S. IN BED SLEEPING WITH CALL ALARM AT SIDE, WILL CONTINUE TO MONITOR UNTIL REPORT GIVEN TO DAYSHIFT RN
--- NOTE | 2022-03-16 09:01 | NUR ---
AM NOTE: PATIENT ALERT AND ORIENTED X4. PERRLA. ABLE TO MOVE ALL EXTREMITIES. OVERALL VERY WEAK. ONE PERSON ASSIST TO BSC. INTERMITTENT ANXIETY, MEDICATED THIS AM. ABLE TO TURN SELF IN BED. ON 4L NASAL CANNULA AT BASELINE. BIPAP IN PLACE AT THIS TIME. SETTINGS 13/7 AND 30% FIO2. RR 20-30'S. OCCASIONAL HARSH CONGESTED COUGH. LUNGS SOUNDING VERY DIMINISHED. NO WHEEZES HEARD. TELE SHOWING SINUS TACH WITH HR 120'S. HR UP TO 160'S WHEN UP TO BSC AND PATIENT EXPERIENCING ANXIETY. NEW MEDS ORDERED THIS AM. PATIENT EDUCATED ON CARDIZEM PO. DENIES CHEST PAIN/PRESSURE. BP STABLE. NO TEMP. DENIES ABDOMINAL PAIN/NAUSEA. UP TO BSC TO VOID. LOOSE BOWEL MOVEMENT THIS AM. CONTINUOUS BIOX IN PLACE. CALL LIGHT IN REACH. WILL CONTINUE TO MONITOR.
--- NOTE | 2022-03-16 12:23 | NUR ---
DR. PALMER IN TO SEE PATIENT. ORDERS TO GIVE ONE TIME DOSE LASIX, AND UP IN CHAIR FOR MEALS. PATIENT UP TO RECLINER FOR LUNCH. FLUTTER VALVE THERAPY ENCOURAGED. DENIES NEEDS AT THIS TIME. WILL CONTINUE TO MONITOR.
--- NOTE | 2022-03-16 13:38 | NUR ---
Upon recieving a referral for spiritual care, I visit pt. Patient is sitting up in bed and alert. Pt shares about her mediacl issues and the fears that she deals with. We then explore her support system (which mostly consists of the neighbors on both sides of her trailer that she lives in) and her coping skills (which mostly consist of being reflective while focusing on the beautiful [place] she [place] by). We talk about ways to stay at peace while away from the river. I nomralize her experience and provide therapeutic listening, gentle breastfeeding peer counselor and prayer. Patient responds well and shows signs of an increased peace. I will continue to remain available.
--- NOTE | 2022-03-16 18:19 | NUR ---
SHIFT SUMMARY: SEE PREVIOUS NOTE FOR UPDATES. NO ACUTE CHANGES THROUGHOUT SHIFT. PATIENT NEEDING BIPAP MOST OF SHIFT, WEARING 4L NASAL CANNULA FOR MEALS. UP TO CHAIR FOR MEALS. NO CHANGES TO TELE. VITALS SIGNS REMAIN STABLE. COUGH CONTINUES. OUTPUT WNL. UP TO BSC WITH ONE PERSON ASSIST. VERY SHORT OF BREATH AND ANXIETY AT TIMES WHEN MOVING. CALL LIGHT IN REACH. WILL CONTINUE TO MONITOR AND REPORT OFF.
--- NOTE | 2022-03-16 21:42 | NUR ---
Assumed care 1900 Pt is A&O, pleasant with cares. VSS on BIPAP. Pt was placed on 4L nasal canula while giving medications. Pt prefers to stay on BIPAP for now. Tachypnic 20-30s. A bit anxious w/ high RR, prn xanax given. RR improved after xanax. Accessory/ abdominal muscles used for breathing. Will continue to monitor.
--- NOTE | 2022-03-17 04:40 | NUR ---
Compliance Consultant Note: Pt is A&O, pleasant with cares. Anxious at times, prn xanax given per orders. Pt tolerated BIPAP for severl hours overnight and then was placed on 4L nasal canula. IV solumedrol given per orders. Pt is having occasional cough. RT rounded on pt and gave the scheduled neb and inhaler treatments. Tele: SR/ST 80-110s, PO cardizem given per orders.
[2022-03-17 04:52] LABS: Anion Gap 6 mmol/L (6-16); Blood Urea Nitrogen 29 mg/dL (8-24); Bun/Creatinine Ratio 44.2 (12.0-20.0); CO2, Blood 30 mmol/L (21-32); Calcium, Blood 8.8 mg/dL (8.5-10.1); Chloride, Blood 104 mmol/L (98-108); Creatinine, Blood 0.66 mg/dL (0.40-1.00); Glomerular Filtration Rate >60 (60-); Glucose, Blood 151 mg/dL (70-99); Magnesium, Blood 2.5 mg/dL (1.6-2.4); Potassium, Blood 4.2 mmol/L (3.5-5.5); Sodium, Blood 140 mmol/L (136-145)
--- NOTE | 2022-03-17 20:41 | NUR ---
Assumed care 1900 VSS on 4L nasal canula. Pt had breathing tx per RT and then asked to go back on BIPAP. PRN xanax given for anxiety. BP and HR slightly elevated due to anxiety, will continue to monitor.
--- NOTE | 2022-03-18 04:17 | NUR ---
Senior Pricing Analyst Note: Pt is A&O, pleasant with cares. Anxious at times, prn xanax given per orders. VSS on 4L nasal canula and BIPAP prn. Productive cough of de paz colored sputum. IV abx given per orders. Up to BSC w/ supervision. IV solumedrol given per orders. No tele orders, medical status at this time.
--- NOTE | 2022-03-18 06:55 | NUR ---
Received report from Noc RN. Patient alert and oriented sitting up in bed. She has 4L O2 via NC and sats 98%. She denies any pain or current needs. She has 18ga RAC IV dressing intact and site WNL's and is flushed and SL'd. Flutter valve at bedside and patient states uses hourly.
--- NOTE | 2022-03-18 09:23 | NUR ---
Patient remains on $L O2 via NC and tolerating well with sats>90%. Abbi RT COPD Navigator in room working with patient. She has tolerated breakfast well and denies any increased SOB. Cipro infusing.
--- NOTE | 2022-03-18 11:36 | NUR ---
Patient worked with PT and became short of breath at end of session and p laced her on BiPAP for about 30 minutes and she wanted to sit at bedside, She was able to get back up in bed and place NC at 4 L and sats >90%. She is currently resting with nosigns of distress.
--- NOTE | 2022-03-18 13:22 | NUR ---
Gave report to med RN for 341 and all belongings were gathered and taken up to room. Came back down and patientwheeled in PCU med and mask on increased O2 by request of patient r/t her wearing mask. She is med no/tele.
--- NOTE | 2022-03-18 13:57 | NUR ---
ASSUMED CARE OF PT- RECIEVED REPORT FROM [employer]. PT ALERT AND ORIENTED AND PLEASENT WITH ALL CARE. PER REPORT PT HAS ANXIETY AND HAS BEEN MEDICATED PRN. PT ON 4L O2 VIA NC, AND BIPAP PRN FOR SOB. PT ARRIVED ON [facility]ICA FLOOR WITH NO CURRENT S&S OF DISTRESS. PT ASSURES RN SHE KNOWS WHEN SHE IS GETTING ANXIOUS AND CAN ASK FOR THE ANXIETY MEDICATION NEEDED. WILL CTM.
--- NOTE | 2022-03-18 17:34 | NUR ---
SHIFT SUMMARY- PT ALERT AND ORIENTED, 1P ASSIST TO THE BSC. PT ON 4L O2 VIA NC, HAS NOT REQUESTED THE BIPAP MASK SINCE ARRIVING ON MEDICAL FLOOR. PT STATES SHE HAS ANXIETY BUT HAS BEEN OK SINCE HER ARRIVAL WELL, DENIES ANY PAIN AT THIS TIME. PT HAS HAD NO ACUTE CHANGES T/O THE DAY. WILL CTM AND PASS ON TO NIGHT RN IN BEDSIDE REPORT.
[2022-03-19 05:54] LABS: BASOPHILS ABSOLUTE AUTO 0.01 K/mm3 (0.00-0.23); BASOPHILS PERCENT AUTO 0 % (0-2); EOSINOPHILS PERCENT AUTO 0 % (0-6); Hematocrit 41.5 % (33.0-51.0); Hemoglobin 12.8 g/dL (11.5-16.0); IMMATURE GRAN ABSOLUTE AUTO 0.14 K/mm3 (0.00-0.10); IMMATURE GRAN PERCENT AUTO 1 % (0-1); LYMPHOCYTES PERCENT AUTO 8 % (21-46); MONOCYTES ABSOLUTE AUTO 0.69 K/mm3 (0.16-1.47); MONOCYTES PERCENT AUTO 5 % (4-13); Mean Corpuscular HGB 27.4 pg (26.0-34.0); Mean Corpuscular HGB Conc 30.8 g/dL (31.5-36.5); Mean Corpuscular Volume 89 fL (80-100); Mean Platelet Volume 9.2 fL (9.1-12.4); NEUTROPHILS ABSOLUTE AUTO 11.31 K/mm3 (1.96-9.15); NEUTROPHILS PERCENT AUTO 86 % (41-73); Platelet Count 278 K/mm3 (150-400); RDW Coefficient Variation 14.2 % (11.7-14.2); RDW Standard Deviation 45.8 fL (35.1-46.3); Red Blood Cell Count 4.67 M/mm3 (3.80-5.20); White Blood Cell Count 13.15 K/mm3 (4.00-11.30)
--- NOTE | 2022-03-19 05:56 | NUR ---
SHIFT SUMMARY PATIENT ALERT AND ORIENTED. HAD NO COMPLAINTS OF PAIN. GETS DYSPNIC UPON EXERTION. MEDICATED PER EMAR FOR ANXIETY. NO ACUTE ISSUES NOTED OVERNIGHT. CALL LIGHT WITHIN REACH. REPORT GIVEN TO ONCOMING RN.
[2022-03-19 06:18] LABS: Anion Gap 5 mmol/L (6-16); Blood Urea Nitrogen 28 mg/dL (8-24); Bun/Creatinine Ratio 38.1 (12.0-20.0); CO2, Blood 31 mmol/L (21-32); Calcium, Blood 8.7 mg/dL (8.5-10.1); Chloride, Blood 102 mmol/L (98-108); Creatinine, Blood 0.74 mg/dL (0.40-1.00); Glomerular Filtration Rate >60 (60-); Glucose, Blood 139 mg/dL (70-99); Potassium, Blood 4.8 mmol/L (3.5-5.5); Sodium, Blood 138 mmol/L (136-145)
--- NOTE | 2022-03-19 19:17 | NUR ---
SHIFT SUMMARY- PT HAS A C-PAP MACHINE THAT IS AVAILABLE PRN. PT IS A 1P ASSIST TO BEDSIDE COMODE AND TO THE BED AND CHAIR, FOR SAFETY. PT ALERT AND ORIENTED INDEPENDENT IN THE BED, CALLS APPROPRIATELY. PT SITTING UP IN THE CHAIR AT THE TIME OF BEDSIDE REPORT NO S&S OF DISTRESS NOTED AT THAT TIME.
--- NOTE | 2022-03-20 05:33 | NUR ---
SHIFT SUMMARY PATIENT ALERT AND ORIENTED. HAD NO COMPLAINTS OF PAIN. DYSPNIC UPON EXERTION. NO ACUTE ISSUES NOTED OVERNIGHT. CALL LIGHT WITHIN REACH. REPORT GIVEN TO ONCOMING RN.
[2022-03-20 13:21] LABS: PCO2 Arterial 54.6 mmHg (35-45); pH Blood Arterial 7.38 (7.35-7.45)
--- NOTE | 2022-03-20 18:06 | NUR ---
PATIENT ALERT AND ORIENTED. 1 PERSON ASSIST TO BATHROOM. PATIENT ON 4L NC. PATIENT DENIES PAIN THROUGH SHIFT. NO ACUTE CHANGES NOTED DURING SHIFT. WILL CONTINUE TO MONITOR.
--- NOTE | 2022-03-21 04:34 | NUR ---
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 SHE IS A DNR. PT ON CPAP AT START OF SHIFT BUT HAS BEEN ON HER NORMAL 4L BY NC THROUGHOUT THE NIGHT AND SATTING AROUND 96% WITH NO COMPLAINTS OF SOB. SHE REPORTS INCREASED SOB WITH HER ANXIETY SO MEDICATED X1 FOR ANXIETY. EXPIRATORY WHEEZES HEARD THROUGHOUT; FREQUENT WET SOUNDING COUGH WITH SLIGHT PRODUCTION OF SPUTUM. PT RESTING THROUGHOUT THE SHIFT. SHE IS A 1PA TO [facility] DUE TO SOB BUT HAS NOT NEEDED TO GET UP.
[2022-03-21] MEDS ORDERED: Lisinopril2.5 MG PO (12:22)
[2022-03-21] MEDS ORDERED: ASPI81CH PO (12:22)
[2022-03-21] MEDS ORDERED: METO25 PO (12:23)
[2022-03-21] MEDS ORDERED: BUSP5 PO (12:23)
[2022-03-21] MEDS ORDERED: VISBIOME PROBIOTIC PO (12:25)
[2022-03-21] MEDS ORDERED: CIPR500 PO (12:25)
[2022-03-21] MEDS ORDERED: MIRALAX17 GM PO (12:26)
[2022-03-21] MEDS ORDERED: Prednisone10 MG PO (12:27)
--- NOTE | 2022-03-21 13:38 | NUR ---
PATIENTS IV REMOVED WITHOUT COMPLICATION. PATIENT RECEIVED DISCHARGE PAPERWORK TO INCLUDE MEDICATIONS, FOLLOWUPS, AND EDUCATION. PATIENT VERBALIZED COMPLETED UNDERSTANDING AND HAS NO QUESTIONS AT THIS TIME. [facility] CONTACTED AND INFORMED PATIENT TO BE DISCHARGED, WILL MEET AT HOME WITH [facility]. PATIENTS BELONGINGS COLLECTED AND SENT WITH PATIENT. DISCHARGED OFF UNIT VIA WHEELCHAIR AT 1330 TO PERSONAL VEHICLE.
== END 2022-03-21 13:27 | disposition home health service (06) | DRG 189 ==
LOC: ER 13:47 → PCU 16:26 → MEDS 03-18 13:23
PROVIDERS: Emergency Medicine; Internal Medicine; ADMIT Internal Medicine
PROC: 5A09457 Assistance with Respiratory Ventilation, 24-96 Consecutive Hours, Continuous Positive Airway Pressure (ICD-10-PCS; principal; 2022-03-14)
DX: J96.21 Acute and chronic respiratory failure with hypoxia (principal); I21.A1 Myocardial infarction type 2; J44.1 Chronic obstructive pulmonary disease with (acute) exacerbation; R65.10 Systemic inflammatory response syndrome (SIRS) of non-infectious origin without acute organ dysfunction; J20.8 Acute bronchitis due to other specified organisms; Z20.822 Contact with and (suspected) exposure to COVID-19; J96.22 Acute and chronic respiratory failure with hypercapnia; I95.9 Hypotension, unspecified; E86.0 Dehydration; Z66 Do not resuscitate; B18.2 Chronic viral hepatitis C; F41.9 Anxiety disorder, unspecified; F32.A Depression, unspecified; I10 Essential (primary) hypertension; F17.200 Nicotine dependence, unspecified, uncomplicated; B96.5 Pseudomonas (aeruginosa) (mallei) (pseudomallei) as the cause of diseases classified elsewhere; Z99.81 Dependence on supplemental oxygen; Z90.710 Acquired absence of both cervix and uterus; Z87.01 Personal history of pneumonia (recurrent); Z79.52 Long term (current) use of systemic steroids; Z79.2 Long term (current) use of antibiotics; Z79.899 Other long term (current) drug therapy
CPT/HCPCS: 0241U; 36415; 36600; 71045; 80048; 80053; 82803; 83605; 83735; 83880; 84145; 84484; 85025; 85379; 87040; 87070; 87077; 87186; 87205; 93005; 93010; 93306; 94640; 94644; 94660; 94664; 94760; 94762; 97110; 97162; 97166; 97530; 97535; 98960; 99285-25; A9270; J0696; J0744; J1650; J1940; J2930; J7030

== ENCOUNTER 2024-11-07 15:06 | Emergency (ER) | payer OTHER ==
[~2024-11-07] VITALS: Ht 160 cm; Wt 74.8 kg
[~2024-11-07 15:06] MED LIST changes: +AIRDUO RESPICL1 EAC4 INH; +Amoxicillin875 MG PO; +BUSP5 PO; +CIPR500 PO; +Lisinopril2.5 MG PO; +METO25 PO; +MIRALAX17 GM PO; +Prednisone10 MG PO; +VISBIOME PROBIOTIC PO
[2024-11-07] MEDS ORDERED: Ipratropium/Albuterol SulF 2.5-0.5MG/3 ML Amp INH ONE (16:55)
[2024-11-07 17:46] LABS: BASOPHILS ABSOLUTE AUTO 0.02 K/mm3 (0.00-0.23); BASOPHILS PERCENT AUTO 0 % (0-2); EOSINOPHILS ABSOLUTE AUTO 0.01 K/mm3 (0.00-0.68); EOSINOPHILS PERCENT AUTO 0 % (0-6); Hematocrit 42.7 % (33.0-51.0); Hemoglobin 13.8 g/dL (11.5-16.0); IMMATURE GRAN ABSOLUTE AUTO 0.03 K/mm3 (0.00-0.10); IMMATURE GRAN PERCENT AUTO 0 % (0-1); LYMPHOCYTES ABSOLUTE AUTO 0.62 K/mm3 (0.84-5.20); LYMPHOCYTES PERCENT AUTO 6 % (21-46); MONOCYTES PERCENT AUTO 2 % (4-13); Mean Corpuscular HGB 28.3 pg (26.0-34.0); Mean Corpuscular HGB Conc 32.3 g/dL (31.5-36.5); Mean Corpuscular Volume 88 fL (80-100); NEUTROPHILS ABSOLUTE AUTO 9.06 K/mm3 (1.96-9.15); NEUTROPHILS PERCENT AUTO 91 % (41-73); Platelet Count 193 K/mm3 (150-400); RDW Coefficient Variation 14.1 % (11.7-14.2); RDW Standard Deviation 45.9 fL (35.1-46.3); Red Blood Cell Count 4.88 M/mm3 (3.80-5.20); White Blood Cell Count 9.94 K/mm3 (4.00-11.30)
[2024-11-07 18:00] LABS: Calcium, Blood 8.8 mg/dL (8.5-10.1); Creatinine, Blood 0.78 mg/dL (0.40-1.00); Potassium, Blood 4.1 mmol/L (3.5-5.5)
[2024-11-07 18:17] LABS: Influenza A, PCR NEGATIVE (NEGATIVE); Influenza B, PCR NEGATIVE (NEGATIVE); Resp Syncytial Virus, PCR NEGATIVE (NEGATIVE); SARS-Cov-2 (COVID-19) PCR, MMC NEGATIVE (NEGATIVE)
[2024-11-07 18:58] VITALS: BP 118/77
[2024-11-07] MEDS ORDERED: PRED20 PO (19:04)
[2024-11-07] MEDS ORDERED: ALBU2.5V5 INH (19:04)
== END 2024-11-07 19:55 | disposition home or self-care (01) ==
LOC: ER 15:06
PROVIDERS: Emergency Medicine
DX: J44.1 Chronic obstructive pulmonary disease with (acute) exacerbation (principal); I10 Essential (primary) hypertension; Z87.891 Personal history of nicotine dependence; Z79.51 Long term (current) use of inhaled steroids; Z79.52 Long term (current) use of systemic steroids; Z79.899 Other long term (current) drug therapy
CPT/HCPCS: 0241U; 71045; 80048; 83880; 84484; 85025; 93005; 93010; 94640; 94664; 99285-25

== ENCOUNTER 2024-12-02 23:29 | Emergency (ER) | payer OTHER ==
[~2024-12-02] VITALS: Ht 160 cm; Wt 72.6 kg
[~2024-12-02 23:29] MED LIST changes: +ALBU2.5V5 INH
[2024-12-03] MEDS ORDERED: MethylPREDNISolone Sod Succ 125 MG Vial IV ONE (00:40)
[2024-12-03] MEDS ORDERED: Ipratropium/Albuterol SulF 2.5-0.5MG/3 ML Amp INH ONE (00:40)
[2024-12-03 01:14] LABS: BASOPHILS ABSOLUTE AUTO 0.02 K/mm3 (0.00-0.23); BASOPHILS PERCENT AUTO 0 % (0-2); EOSINOPHILS ABSOLUTE AUTO 0.06 K/mm3 (0.00-0.68); EOSINOPHILS PERCENT AUTO 1 % (0-6); Hematocrit 38.6 % (33.0-51.0); Hemoglobin 12.3 g/dL (11.5-16.0); IMMATURE GRAN ABSOLUTE AUTO 0.06 K/mm3 (0.00-0.10); IMMATURE GRAN PERCENT AUTO 1 % (0-1); LYMPHOCYTES ABSOLUTE AUTO 0.32 K/mm3 (0.84-5.20); LYMPHOCYTES PERCENT AUTO 4 % (21-46); MONOCYTES ABSOLUTE AUTO 0.29 K/mm3 (0.16-1.47); MONOCYTES PERCENT AUTO 4 % (4-13); Mean Corpuscular HGB 27.7 pg (26.0-34.0); Mean Corpuscular HGB Conc 31.9 g/dL (31.5-36.5); Mean Corpuscular Volume 87 fL (80-100); Mean Platelet Volume 8.7 fL (9.1-12.4); NEUTROPHILS ABSOLUTE AUTO 7.06 K/mm3 (1.96-9.15); NEUTROPHILS PERCENT AUTO 90 % (41-73); Platelet Count 269 K/mm3 (150-400); RDW Coefficient Variation 13.4 % (11.7-14.2); RDW Standard Deviation 42.5 fL (35.1-46.3); Red Blood Cell Count 4.44 M/mm3 (3.80-5.20); White Blood Cell Count 7.81 K/mm3 (4.00-11.30)
[2024-12-03 01:29] LABS: Bun/Creatinine Ratio 15.7 (12.0-20.0); Calcium, Blood 8.3 mg/dL (8.5-10.1); Creatinine, Blood 0.51 mg/dL (0.40-1.00); Potassium, Blood 3.7 mmol/L (3.5-5.5)
[2024-12-03 01:47] LABS: Base Excess Venous 3.6 mmol/L; Bicarbonate Venous 26.8 mmol/L (24.0-30.0); PCO2 Venous 51.9 mmHg (38-42); pH Blood Venous 7.36 (7.34-7.37)
[2024-12-03] MEDS ORDERED: Doxycycline Hyclate 100 MG TAB PO ONE (02:30)
[2024-12-03] MEDS ORDERED: Amoxicillin/Clavulanate K 875 MG Tab PO ONE (02:30)
[2024-12-03 03:06] LABS: Influenza A, PCR NEGATIVE (NEGATIVE); Influenza B, PCR NEGATIVE (NEGATIVE); Resp Syncytial Virus, PCR NEGATIVE (NEGATIVE); SARS-Cov-2 (COVID-19) PCR, MMC NEGATIVE (NEGATIVE)
[2024-12-03] MEDS ORDERED: DOXY100 PO (03:19)
[2024-12-03] MEDS ORDERED: AMOCLA875 PO (03:19)
[2024-12-03] MEDS ORDERED: Ondansetron HCl 2 MG / ML 2ML Vial IV ONE (03:40)
[2024-12-03] MEDS ORDERED: Ondansetron 8 MG SoluTab SL ONE (03:40)
[2024-12-03 09:50] VITALS: BP 108/70
== END 2024-12-03 09:54 | disposition home or self-care (01) ==
LOC: ER 23:29
PROVIDERS: Emergency Medicine
DX: J44.1 Chronic obstructive pulmonary disease with (acute) exacerbation (principal); J18.9 Pneumonia, unspecified organism; Z87.891 Personal history of nicotine dependence; I10 Essential (primary) hypertension; Z79.51 Long term (current) use of inhaled steroids; Z79.52 Long term (current) use of systemic steroids; Z79.899 Other long term (current) drug therapy
CPT/HCPCS: 0241U; 71045; 80048; 82803; 83880; 84484; 85025; 85379; 93005; 93010; 94640; 94664; 96374; 99285-25; A9270; J2405